=== PATIENT | female | born 1950 | race Caucasian/White ===

== ENCOUNTER → 2018-04-27 | Outpatient (CLI) | payer OTHER ==
[~2018-04-27] MED LIST: AMLO5TAB2 PO; ASPI-515 PO; CARV12.52 PO; CHOL100012 PO; DULA1.5P SQ; DULO30CA2 PO; ESTR0.5T PO; ESTR0.5T3 PO; FEXO-64 PO; GLIP10TA13 PO; HYDR-3342 PO; METF500T5 PO; MULT-516 PO; NAPR-685 PO; OMEP-110 PO; PRAV10TA2 PO; SACU1TAB PO; TRIA1CAP3 PO
== END | disposition home or self-care (01) ==
LOC: CVU 06:52
PROVIDERS: ATTEND Nurse Practitioner Family
DX: I08.0 Rheumatic disorders of both mitral and aortic valves (principal); I42.9 Cardiomyopathy, unspecified; I44.7 Left bundle-branch block, unspecified; I11.0 Hypertensive heart disease with heart failure; I50.9 Heart failure, unspecified; E78.5 Hyperlipidemia, unspecified; E11.9 Type 2 diabetes mellitus without complications
CPT/HCPCS: 93306

== ENCOUNTER → 2018-05-18 | Outpatient (CLI) | payer OTHER ==
[~2018-05-18] MED LIST changes: -DULA1.5P SQ; -FEXO-64 PO; -HYDR-3342 PO; -PRAV10TA2 PO; -SACU1TAB PO
[2018-05-18 12:07] LABS: BASOPHILS # (AUTO) 0.03 x10^3/uL (0-0.1); BASOPHILS % (AUTO) 0 % (0-1); EOSINOPHILS # (AUTO) 0.21 x10^3/uL (0-0.4); EOSINOPHILS % (AUTO) 2 % (1-7); LYMPHOCYTES # (AUTO) 3.49 x10^3/uL (1-3.4); LYMPHOCYTES % (AUTO) 39 % (22-44); MD NO; MEAN CORPUSCULAR HEMOGLOBIN 28.1 pg (27.0-34.8); MEAN CORPUSCULAR VOLUME 85.3 fL (80-100); MONOCYTES # (AUTO) 0.51 x10^3/uL (0.2-0.8); MONOCYTES % (AUTO) 6 % (2-9); NEUTROPHILS # (AUTO) 4.78 x10^3/uL (1.8-6.8); NEUTROPHILS % (AUTO) 53 % (42-75); PLATELET COUNT 202 x10^3/uL (130-400); RED BLOOD COUNT 4.68 x10^6/uL (3.82-5.3); RED CELL DISTRIBUTION WIDTH 14.9 % (9.6-15.2)
[2018-05-18 12:12] LABS: ANION GAP 9 mmol/L (5-15); CALCIUM 8.9 mg/dL (8.5-10.1); CHLORIDE 102 mmol/L (98-107)
[2018-05-18 12:27] LABS: INTERNATIONAL NORMALIZED RATIO 1.06 (0.93-1.1)
== END | disposition home or self-care (01) ==
LOC: STAR 11:15
PROVIDERS: ATTEND Internal Medicine Cardiovascular Disease
DX: Z01.818 Encounter for other preprocedural examination (principal); E11.9 Type 2 diabetes mellitus without complications; R01.1 Cardiac murmur, unspecified; I25.2 Old myocardial infarction
CPT/HCPCS: 36415; 71046; 80048; 85025; 85610

== ENCOUNTER 2018-05-24 06:58 | Observation (INO) | payer OTHER ==
[2018-05-18 11:56] VITALS: BP 129/60
[~2018-05-24] VITALS: Ht 152.4 cm; Wt 85.5 kg
[2018-05-24] MEDS: SODIUM CHLORIDE 0.9% 1,000 ML IV SCH ×3 (07:04→23:04)
[2018-05-24] MEDS ORDERED: SACU1TAB PO (07:29)
[2018-05-24] MEDS ORDERED: CEFAZOLIN PMX 1GM/50ML 50 ML IVPB ONE (07:30)
[2018-05-24] MEDS ORDERED: DULA1.5P SQ (07:31)
[2018-05-24] MEDS ORDERED: PRAV10TA2 PO (07:31)
[2018-05-24] MEDS ORDERED: HYDR-3342 PO (07:33)
[2018-05-24] MEDS ORDERED: FEXO-64 PO (07:36)
[2018-05-24] MEDS ORDERED: CEFAZOLIN 1,000 MG ONE ×2 (07:40→08:07)
[2018-05-24] MEDS ORDERED: CEFAZOLIN PMX 1GM/50ML 50 ML ONE (07:40)
[2018-05-24] MEDS ORDERED: FENTANYL PF 250 MCG/5ML ONE (08:04)
[2018-05-24] MEDS ORDERED: PROPOFOL 10 MG/ML, 20ML ONE (08:07)
[2018-05-24] MEDS ORDERED: SUCCINYLCHOLINE 20 MG/ML, 10ML ONE (08:07)
[2018-05-24] MEDS ORDERED: DEXAMETHASONE 4 MG/ML, 1ML ONE (08:07)
[2018-05-24] MEDS ORDERED: ALBUTEROL SULFATE 200 PUFFS/8.5 GR INH ONE (08:07)
[2018-05-24] MEDS ORDERED: ONDANSETRON 2MG/ML, 2ML ONE (08:07)
[2018-05-24] MEDS ORDERED: DIPHENHYDRAMINE 50 MG/ML, 1ML ONE (08:20)
[2018-05-24] MEDS ORDERED: HOLD MEDICATION MC PRN (09:30)
[2018-05-24] MEDS ORDERED: HYDROcodone/APAP 5/325 TABLET PO PRN (09:30)
[2018-05-24] MEDS ORDERED: ZOLPIDEM 5MG TABLET PO PRN (09:30)
[2018-05-24] MEDS ORDERED: DULAGLUTIDE HOMETD SCH (09:30)
[2018-05-24] MEDS ORDERED: OXYcodone 5 MG/5 ML ORAL.SOL UDC PO PRN (10:00)
[2018-05-24] MEDS ORDERED: ALBUTEROL SULFATE 2.5 MG/3 ML NPPB PRN (10:00)
[2018-05-24] MEDS ORDERED: FENTANYL PF 100 MCG/2ML IV PRN (10:00)
[2018-05-24] MEDS ORDERED: DIPHENHYDRAMINE 50 MG/ML, 1ML IVPush PRN (10:00)
[2018-05-24] MEDS ORDERED: PROMETHAZINE 25 MG/ML, 1ML IV PRN (10:00)
[2018-05-24] MEDS ORDERED: DIAZEPAM 5 MG/ML, 2ML IVPush PRN (10:00)
[2018-05-24] MEDS ORDERED: MIDAZOLAM 1 MG/ML, 2ML IV PRN (10:00)
[2018-05-24] MEDS ORDERED: MORPHINE SULFATE 4 MG/ML, 1ML IVPush PRN (10:00)
[2018-05-24] MEDS ORDERED: hydrALAzine 20 MG/ML, 1ML IV PRN (10:00)
[2018-05-24] MEDS ORDERED: METOPROLOL 1 MG/ML, 5ML IV PRN (10:00)
[2018-05-24] MEDS ORDERED: ACETAMINOPHEN 325 MG TABLET PO PRN (10:00)
[2018-05-24] MEDS ORDERED: ONDANSETRON ODT 8 MG PO PRN (10:00)
[2018-05-24] MEDS ORDERED: LORazepam 2 MG/ML, 1ML IVPush PRN (10:00)
[2018-05-24] MEDS ORDERED: ACETAMINOPHEN 650 MG/20.3 ML UDC ONE (10:16)
[2018-05-24] MEDS ORDERED: OXYcodone 5 MG/5 ML ORAL.SOL UDC ONE (10:16)
[2018-05-24] MEDS ORDERED: FENTANYL PF 100 MCG/2ML ONE (10:16)
[2018-05-24 12:25] VITALS: BP 147/78
[2018-05-24] MEDS ORDERED: LORATADINE 10 MG TABLET PO PRN (12:30)
[2018-05-24 12:49] VITALS: BP 130/76
[2018-05-24] MEDS: CEFAZOLIN PMX 1GM/50ML 50 ML IVPB SCH ×2 (15:25→23:16)
[2018-05-24 18:46] VITALS: BP 125/65
[2018-05-24] MEDS: metFORMIN 500 MG TABLET PO SCH (20:57)
[2018-05-24] MEDS: CARVEDILOL 12.5 MG TABLET PO SCH (20:58)
[2018-05-24] MEDS: SACUBITRIL/VALSARTAN 24MG-26MG TAB HOMEMEDPO SCH (20:58)
[2018-05-24] MEDS: SODIUM CHLORIDE FLUSH 10ML SYR IVF SCH (20:58)
[2018-05-24] MEDS ORDERED: SIMVASTATIN 5 MG TABLET PO SCH (21:00)
[2018-05-24] MEDS: ACETAMINOPHEN 325 MG TABLET PO PRN (21:17)
[2018-05-25 00:41] VITALS: BP 122/54
[2018-05-25] MEDS: ACETAMINOPHEN 325 MG TABLET PO PRN ×2 (03:18→09:48)
[2018-05-25] MEDS: SODIUM CHLORIDE 0.9% 1,000 ML IV SCH (04:50)
[2018-05-25 07:53] VITALS: BP 127/73
[2018-05-25] MEDS: metFORMIN 500 MG TABLET PO SCH (08:24)
[2018-05-25] MEDS: CARVEDILOL 12.5 MG TABLET PO SCH (08:24)
[2018-05-25] MEDS: SODIUM CHLORIDE FLUSH 10ML SYR IVF SCH (08:27)
[2018-05-25] MEDS ORDERED: CHOLECALCIFEROL 1,000 UNIT TABLET PO SCH (09:00)
[2018-05-25] MEDS ORDERED: AMLODIPINE 5 MG TABLET PO SCH (09:00)
[2018-05-25] MEDS ORDERED: DULOXETINE 30 MG CAPSULE.DR PO SCH (09:00)
[2018-05-25] MEDS ORDERED: MULTIVITAMIN 1 TABLET PO SCH (09:00)
[2018-05-25] MEDS ORDERED: OMEPRAZOLE 20 MG CAPSULE.DR PO SCH (09:00)
[2018-05-25] MEDS ORDERED: ASPIRIN 81 MG TABLET EC PO SCH (09:00)
[2018-05-25] MEDS ORDERED: TRIAMTERENE-HCTZ 37.5/25 MG TABLET PO SCH (09:00)
[2018-05-25] MEDS: SACUBITRIL/VALSARTAN 24MG-26MG TAB HOMEMEDPO SCH (13:07)
== END 2018-05-25 14:28 | disposition home or self-care (01) ==
LOC: CACL 06:58 → ORIP 09:23 → 5SO 11:44
PROVIDERS: ADMIT Internal Medicine Cardiovascular Disease; ATTEND Internal Medicine Cardiovascular Disease
DX: I42.0 Dilated cardiomyopathy (principal); I11.0 Hypertensive heart disease with heart failure; I50.9 Heart failure, unspecified; I44.7 Left bundle-branch block, unspecified; I49.01 Ventricular fibrillation; E11.9 Type 2 diabetes mellitus without complications; E78.5 Hyperlipidemia, unspecified; E78.2 Mixed hyperlipidemia; R94.31 Abnormal electrocardiogram [ECG] [EKG]
CPT/HCPCS: 33225; 33249; 71045; 71046; 82962; 93641; 96365; 96366; C1769; C1779; C1882; C1887; C1892; C1895; C1900; G0378; J0330; J0690; J1100; J1200; J2405; J2704; J3010; Q9967

== ENCOUNTER → 2019-02-01 | Outpatient (CLI) | payer OTHER ==
[~2019-02-01] MED LIST changes: +AMLO-150 PO; -AMLO5TAB2 PO; +DULA1.5P SQ; +FEXO-64 PO; +HYDR-3342 PO; +METF500T17 PO; -METF500T5 PO; +PRAV10TA2 PO; +SACU1TAB PO
== END | disposition home or self-care (01) ==
LOC: CFH 14:38
PROVIDERS: ATTEND Internal Medicine Cardiovascular Disease
DX: I42.9 Cardiomyopathy, unspecified (principal); I10 Essential (primary) hypertension; E78.5 Hyperlipidemia, unspecified
CPT/HCPCS: 93306

== ENCOUNTER 2019-12-25 10:57 | Day surgery (SDC) | payer OTHER ==
[~2019-12-25] VITALS: Ht 152.4 cm; Wt 81.5 kg
[2019-12-25 12:11] VITALS: BP 143/76
[2019-12-25] MEDS ORDERED: LIDOCAINE-MPF 1%, 5ML ONE ×2 (13:18→13:52)
== END 2019-12-25 17:05 | disposition home or self-care (01) ==
LOC: OUT 10:57
PROVIDERS: ATTEND Registered Nurse
DX: M54.16 Radiculopathy, lumbar region (principal)
CPT/HCPCS: 62284

== ENCOUNTER 2020-01-08 10:54 | Day surgery (SDC) | payer OTHER ==
[~2020-01-08] VITALS: Ht 152.4 cm; Wt 82.0 kg
[2020-01-08 11:59] VITALS: BP 114/62
[2020-01-08] MEDS ORDERED: LIDOCAINE-MPF 1%, 5ML ONE (12:49)
[2020-01-08] MEDS ORDERED: OMNIPAQUE 300 MG/ML, 10ML VIAL ONE (13:00)
[2020-01-08] MEDS ORDERED: ACETAMINOPHEN 500 MG TABLET ONE (14:41)
[2020-01-08] MEDS ORDERED: ACETAMINOPHEN 500 MG TABLET PO ONE (15:00)
== END 2020-01-08 17:15 | disposition home or self-care (01) ==
LOC: OUT 10:54
PROVIDERS: ATTEND Registered Nurse
DX: M51.16 Intervertebral disc disorders with radiculopathy, lumbar region (principal); M48.061 Spinal stenosis, lumbar region without neurogenic claudication; M48.02 Spinal stenosis, cervical region; I10 Essential (primary) hypertension; Z88.2 Allergy status to sulfonamides; Z91.041 Radiographic dye allergy status; Z95.0 Presence of cardiac pacemaker; Z98.1 Arthrodesis status
CPT/HCPCS: 62284; 72126; 72132; Q9967

== ENCOUNTER → 2021-03-24 | Outpatient (CLI) | payer OTHER ==
[~2021-03-24] MED LIST changes: -ASPI-515 PO; +ASPI-963 PO
== END | disposition home or self-care (01) ==
LOC: CFH 10:09
PROVIDERS: ATTEND Internal Medicine Cardiovascular Disease
DX: I11.9 Hypertensive heart disease without heart failure (principal); I42.9 Cardiomyopathy, unspecified
CPT/HCPCS: 93306